=== PATIENT | male | born 1940 | race African-American/Black ===

== ENCOUNTER 2019-09-01 06:24 | Day surgery (SDC) | payer MEDICARE, MEDICAID ==
--- NOTE | 2019-08-29 12:44 | Opthalmology H&P ---
Ophthalmology H&P H&P Chief Complaint: decreased vision in right eye HPI Vision Affects Ability to: read, manage personal affairs Past Ocular History: glaucoma - Severe glaucoma OD,NLP OS, retinal problems - NLP OS HPI Narrative Blurry vision Exam Visual Acuity: OD 20/125 OS NLP Tension: OD 13 OS 21 Eye Exam: normal OU: external exam, palpebral fissure-width, marginal reflex distance, levator function, corneas, anterior chambers, fundus exam - NLP OS; findings: lens - NS Cataract OD Assessment/Plan Treatment Plan: cataract extraction w/ lens implant Goals of Treatment: improvement of vision, enhance quality of life Attestation Attestation The risks and benefits of the surgery as well as alternative procedures were explained to the patient in detail. Tito Justice MD Aug 29, 2019 12:44
--- NOTE | 2019-08-29 12:46 | Pre-Procedure Note/Attestation ---
Pre-Procedure Note/Attestation Complete Prior to Procedure Planned Procedure: right Procedure Narrative: Cataract extraction with intraocular lens implant right eye Indications for Procedure Pre-Operative Diagnosis: Nuclear sclerotic cataract right eye Attestation I attest that I discussed the nature of the procedure; its benefits; risks and complications; and alternatives (and the risks and benefits of such alternatives ), prior to the procedure, with the patient (or the patient's legal junior sales representative). I attest that, if there was a reasonable possibility of needing a blood transfusion, the patient (or the patient's legal junior sales representative) was given the [facility] standardized written summary, pursuant to the Chaitanya Yasmin Blood Safety Act ([place] Health and Safety Code # 1645, as amended). I attest that I re-evaluated the patient just prior to the surgery and that there has been no change in the patient's H&P, except as documented below: Tito Justice MD Aug 29, 2019 12:46
[~2019-09-01] VITALS: Ht 182.9 cm; Wt 73.5 kg
[2019-09-01] MEDS ORDERED: Proparacaine 0.5% Opth Soln 15ml RIGHT EYE ONE (07:00)
[2019-09-01] MEDS ORDERED: Akten 3.5% 1ml Btl RIGHT EYE ONE (07:00)
[2019-09-01] MEDS ORDERED: Tetracaine 0.5% Opth 4ml Soln RIGHT EYE ONE (07:00)
[2019-09-01] MEDS: Tobramycin Op Soln 0.3% 5ml RIGHT EYE SCH ×3 (07:04→07:29)
[2019-09-01] MEDS: Phenylephrine 10% Opth Soln 5ml RIGHT EYE SCH ×3 (07:04→07:29)
[2019-09-01] MEDS: Cyclopentolate 1% Opth Sol 2ml RIGHT EYE SCH ×3 (07:04→07:29)
[2019-09-01] MEDS: Diclofenac Sod 0.1% Op Soln RIGHT EYE SCH ×3 (07:04→07:29)
[2019-09-01] MEDS: Tropicamide 1% Opth 15ml Soln RIGHT EYE SCH ×3 (07:04→07:29)
[2019-09-01 07:22] VITALS: BP 152/60
--- NOTE | 2019-09-01 07:41 | Anethesia Preoperative Eval ---
Anesthesia Pre-op PMH/ROS General Date of Evaluation: Sep 01, 2019 Mallampati Score Class I : Soft palate, uvula, fauces, pillars visible Class II: Soft palate, uvula, fauces visible Class III: Soft palate, base of uvula visible Class IV: Only hard plate visible Allergies: Coded Allergies: No Known Allergies (Unverified , 09/01/19) Anesthesia Pre-op Phys. Exam Physician Exam Last Vital Signs Date Time Temp Pulse Resp B/P (MAP) Pulse Ox O2 Delivery O2 Flow Rate FiO2 09/01/19 07:22 98.4 69 18 152/60 100 Room Air Anesthesia Pre-op A/P Labs Chemistry Test 09/01/19 07:20 Potassium Level Pending Ramandeep Morrow MD Sep 01, 2019 07:41
[2019-09-01] MEDS ORDERED: PROLENSA1.6 ML OP (07:44)
[2019-09-01] MEDS ORDERED: BESIVANCE OP (07:44)
[2019-09-01] MEDS ORDERED: ASPIR 8181 MG ORAL (07:44)
[2019-09-01] MEDS ORDERED: PLAVIX75 MG ORAL (07:44)
[2019-09-01] MEDS ORDERED: CARVEDILOL3.125 MG ORAL (07:44)
[2019-09-01] MEDS ORDERED: LR 1000ml 1,000 ML IVLG SCH (07:49)
--- NOTE | 2019-09-01 07:49 | Anethesia Preoperative Eval ---
Anesthesia Pre-op PMH/ROS General Date of Evaluation: Sep 01, 2019 Anesthesiologist: Darius ASA Score: ASA 3 Mallampati Score Class I : Soft palate, uvula, fauces, pillars visible Class II: Soft palate, uvula, fauces visible Class III: Soft palate, base of uvula visible Class IV: Only hard plate visible Mallampati Classification: Class III Surgeon: yahaira Diagnosis: right cataract Surgical Procedure: right cataract extraction wtih IOL Anesthesia History: none Family History: no anesthesia problems Allergies: Coded Allergies: No Known Allergies (Unverified , 09/01/19) Medications: see eMAR Patient NPO?: Yes NPO Date: Aug 31, 2019 NPO Time: 22:00 Past Medical History Cardiovascular: Reports: HTN, CAD - s/p stent placement, arrhythmia - s/p pacemaker; Denies: IN, valve dz, other Pulmonary: Denies: asthma, COPD, PIETRO, other Gastrointestinal/Genitourinary: Reports: ESRD; Denies: GERD, CRI, other Neurologic/Psychiatric: Denies: dementia, CVA, depression/anxiety, TIA, other Endocrine: Reports: DM; Denies: hypothyroidism, steroids, other HEENT: Denies: cataract (L), cataract (R), glaucoma, [place] (L), [place] (R), other Hematology/Immune: Denies: anemia, DVT, bleeding disorder, other Musculoskeletal/Integumentary: Denies: OA, RA, DJD, DDD, edema, other Other: other - s/p ivc filter placement PSxH Narrative: fistula, ivc filter Anesthesia Pre-op Phys. Exam Physician Exam Last Vital Signs Date Time Temp Pulse Resp B/P (MAP) Pulse Ox O2 Delivery O2 Flow Rate FiO2 09/01/19 07:22 98.4 69 18 152/60 100 Room Air Constitutional: NAD Cardiovascular: RRR Respiratory: CTA Airway Exam Mallampati Score: Class III MO: limited ROM: limited Anesthesia Pre-op A/P Labs Chemistry Test 09/01/19 07:20 Potassium Level Pending Studies Pre-op Studies: EKG - sr Risk Assessment & Plan Assessment: ASA III Plan: MAC Status Change Before Surgery: No Pre-Antibiotics Drug: N/A Ramandeep Morrow MD Sep 01, 2019 07:49
[2019-09-01] MEDS ORDERED: DiphenhydrAMINE 50mg/ml Inj IVP PRN (08:00)
--- NOTE | 2019-09-01 08:42 | Immediate Post-Op Evaluation ---
Immediate Post-Op Evalulation Immediate Post-Op Evalulation Procedure: Right cataract extraction with IOL Date of Evaluation: Sep 01, 2019 Time of Evaluation: 08:41 IV Fluids: 200 Blood Products: 0 Estimated Blood Loss: 0 Urinary Output: 0 Blood Pressure Systolic: 150 Blood Pressure Diastolic: 86 Pulse Rate: 64 Respiratory Rate: 16 O2 Sat by Pulse Oximetry: 100 Temperature (Fahrenheit): 97.8 Pain Score (1-10): 0 Nausea: No Vomiting: No Complications 0 Patient Status: awake, reacts, patent, none Hydration Status: adequate Drug: N/A Ramandeep Morrow MD Sep 01, 2019 08:42
--- NOTE | 2019-09-01 08:43 | 48 Hour Post Anesthesia Eval ---
Post Anesthesia Evaluation Procedure: Right cataract extraction with IOL Date of Evaluation: Sep 01, 2019 Airway: patent Nausea: No Vomiting: No Hydration Status: adequate Cardiopulmonary Status: at baseline Mental Status/LOC: patient returned to baseline Post-Anesthesia Complications: 0 Follow-up care needed: ready to discharge Ramandeep Morrow MD Sep 01, 2019 08:43
[2019-09-01 09:20] VITALS: BP 146/66
== END 2019-09-01 08:24 | disposition home or self-care (01) ==
LOC: SUR 06:24
DX: E87.5 Hyperkalemia (principal); Z53.8 Procedure and treatment not carried out for other reasons
CPT/HCPCS: 36415; 82962; 84132